=== PATIENT | female | born 1945 | race Caucasian/White ===

== ENCOUNTER 2020-06-16 17:27 | Emergency (ER) | payer MEDICARE, BC ==
[2020-06-16] MEDS ORDERED: HYDROmorphone 0.5 MG/0.5 ML Syringe IVPUSH ONE ×2 (17:42→19:45)
--- NOTE | 2020-06-16 18:11 | EDM.PDOC ---
<Johanny Hardy - Last Filed: 06/16/20 18:05> ED HPI GENERAL MEDICAL PROBLEM - General Chief Complaint: Upper Extremity Injury/Pain Stated Complaint: LEFT ELBOW PAIN Time Seen by Provider: 06/16/20 18:06 Source of Information: Reports: Patient History Limitations: Reports: No Limitations - History of Present Illness INITIAL COMMENTS - FREE TEXT/NARRATIVE: pt fell in the garage this afternoon and landed on her left elebopw. She was seen at the clinic and was found to have a communited fracture of the left elebow. Roger Akbar was contacted and he requested a cat scan with 3D reconstruction . He also wished a posterior splint. Onset: Today, Sudden Duration: Hour(s): Location: Reports: Upper Extremity, Left Associated Symptoms: Reports: No Other Symptoms Left Elbow Pain Score (Numeric/FACES): 10 - Related Data Allergies Allergy/AdvReac Type Severity Reaction Status Date / Time clopidogrel Allergy Rash Verified 06/16/20 18:20 diclofenac Allergy Chest Verified 06/16/20 18:20 Tightness lisinopril Allergy Cannot Verified 06/16/20 18:20 Remember nitrofurantoin Allergy Cannot Verified 06/16/20 18:20 [From Macrobid] Remember pantoprazole Allergy Cannot Verified 06/16/20 18:20 Remember rabeprazole [From AcipHex] Allergy Cannot Verified 06/16/20 18:20 Remember simvastatin Allergy Muscle Verified 06/16/20 18:20 Aches Sulfa (Sulfonamide Allergy Hives Verified 06/16/20 18:20 Antibiotics) valsartan Allergy Cannot Verified 06/16/20 18:20 Remember Past Medical History HEENT History: Reports: Impaired Vision Cardiovascular History: Reports: CAD, High Cholesterol, Hypertension MACHINE [employer] History: Reports: Fibroids, Other (See Below) Other MACHINE [employer] History: fibroids removed. Musculoskeletal History: Reports: Arthritis - Past Surgical History Cardiovascular Surgical History: Reports: Coronary Artery Bypass, Coronary Artery Stent, Valve Replacement Musculoskeletal Surgical History: Reports: Arthroscopic Knee Social & Family History - Tobacco Use Tobacco Use Status *Q: Never Tobacco User - Caffeine Use Caffeine Use: Reports: Soda - Recreational Drug Use Recreational Drug Use: No Review of Systems - Review of Systems Review Of Systems: See Below Constitutional: Reports: No Symptoms Eyes: Reports: No Symptoms Ears: Reports: No Symptoms Nose: Reports: No Symptoms Mouth/Throat: Reports: No Symptoms Respiratory: Reports: No Symptoms Cardiovascular: Reports: No Symptoms Musculoskeletal: Reports: Other (pain in left elebow with a known fracture. ) ED EXAM, GENERAL - Physical Exam Exam: See Below Free Text/Narrative:: pt arrived with a communited fracture of the left elebow. She will be having a cat scan of the elebow. Exam Limited By: No Limitations General Appearance: Alert Extremities: Other (pt has a communited fracture of the left elebow. pt has normal sensation and noral pulses present. ) Neurological: Alert, Oriented, Normal Cognition Departure - Departure Disposition: Home, Self-Care 01 Clinical Impression: Fracture of humerus Qualifiers: Encounter type: initial encounter Humerus Location: supracondylar fracture without intercondylar fracture Fracture type: closed Fracture morphology: comminuted Fracture alignment: displaced Laterality: left Qualified Code(s): S42.422A - Displaced comminuted supracondylar fracture without intercondylar fracture of left humerus, initial encounter for closed fracture - Discharge Information Instructions: Humerus Fracture Treated With Immobilization Referrals: Derrick Tripp MD [Primary Care Provider] - Forms: ED Department Discharge Additional Instructions: Keep injured arm in splint and arm sling. Apply ice to the elbow area 20 minutes off and on. Avoid vigorous activity this weekend to reduce swelling risk. Contact the [facility] appointment line on June 19, to arrange orthopedic consultation for the injury. If feeling worse through the weekend in any way, return to this emergency department. You may use the tramadol prescribed 1 tablet every 4-6 hours as needed for pain. Sepsis Event Note (ED) - Evaluation Sepsis Screening Result: No Definite Risk <Connor Rodriguez Román - Last Filed: 06/16/20 20:16> ED TRAUMA EXTREMITY PROCEDURES - Splinting Left Upper Extremity Pre-Procedure NV Status: Normal Post-Procedure NV Status: Normal Splint Material: Fiberglass Splint Design: Posterior Applied & Form Fitted By: Provider Provider Post-Splint Application NV Check: NV Status Normal Complications: No Course - Vital Signs Last Recorded V/S: Last Vital Signs Temp 36.5 C 06/16/20 17:51 Pulse 70 06/16/20 17:51 Resp 16 06/16/20 17:51 BP 191/98 H 06/16/20 17:51 Pulse Ox 97 06/16/20 17:51 - Orders/Labs/Meds Orders: Active Orders 24 hr Category Date Time Status Elbow wo Cont Lt [CT] Stat Exams 06/16/20 17:58 Ordered Meds: Medications Discontinued Medications Generic Name Dose Route Start Last Admin Trade Name Haleigh PRN Reason Stop Dose Admin Hydromorphone HCl 0.5 mg 06/16/20 17:42 06/16/20 17:59 Dilaudid IVPUSH 06/16/20 17:43 0.5 mg ONETIME ONE Administration Hydromorphone HCl 0.5 mg 06/16/20 19:45 06/16/20 19:59 Dilaudid IVPUSH 06/16/20 19:46 0.5 mg ONETIME ONE Administration - Re-Assessments/Exams Free Text/Narrative Re-Assessment/Exam: 06/16/20 19:19 A posterior splint was placed personally by myself. The patient was somewhat more comfortable in the splint compared to the free arm. Orthopedics in [place] is not able to take care of this complex fracture and she will require treatment by surgeons in [place]. I reviewed her case with Dr. Brandt, the orthopedist on-call at [facility] in [place]. He does not fix this particular type of complex fracture but others in the group do. This does not require immediate surgical repair. She will be kept in a posterior splint and arm sling through the weekend. She should ice the affected area to the extent that she can through all of her splint wrappings. [facility] prescription was entered for tramadol 50 mg, 15 tablets to be used as directed. If feeling worse in any way through the weekend she should return here. She was discharged in stable condition. 06/16/20 19:38 Departure - Departure Time of Disposition: 19:41 Sepsis Event Note (ED) - Focused Exam Vital Signs: Vital Signs Temp Pulse Resp BP Pulse Ox 06/16/20 17:51 36.5 C 70 16 191/98 H 97 06/16/20 17:47 36.5 C 70 16 191/98 H 97
--- NOTE | 2020-06-19 13:52 | CRLCT ---
HISTORY: Left elbow pain, fracture. TECHNIQUE: Noncontrast CT of the left elbow. COMPARISON: No prior. FINDINGS: There is an acute comminuted fracture of the distal humerus disrupting the capitellum and trochlea. There is approximately 10 mm of displacement at the capitellar articular surface as seen on sagittal image #61 for example. The radial head is slightly impacted into the capitellar fracture. Approximately 10 mm of displacement at the anterior aspect of the trochlear articular surface with proximal displacement of a fragment containing a portion of the articular surface, also well seen on the sagittal images. Ulnar - trochlear malalignment is present. There is no acute proximal radial or proximal ulnar fracture. A lipohemarthrosis is noted. There are mild degenerative changes of the elbow joint space. IMPRESSION: 1. Acute comminuted displaced fracture of the distal humerus with disruption of the capitellar and trochlear articular surfaces and on the order of 10 mm displacement at the distal articular surface. Radial head is slightly impacted into the capitellar fracture. There is ulnar - trochlear malalignment. 2. Lipohemarthrosis. Please note that all CT scans at this facility use dose modulation, iterative reconstruction, and/or weight-based dosing when appropriate to reduce radiation dose to as low as reasonably achievable. Dictated by Jeff Campbell MD @ Jun 18 2020 9:51AM Signed by: Jeff Campbell MD @06/18/2020 9:59:41 AM (Electronic Signature) MTDD
== END 2020-06-16 20:10 | disposition home or self-care (01) ==
LOC: JP.ED 17:27
DX: S42.422A Displaced comminuted supracondylar fracture without intercondylar fracture of left humerus, initial encounter for closed fracture (principal); I25.10 Atherosclerotic heart disease of native coronary artery without angina pectoris; E78.00 Pure hypercholesterolemia, unspecified; I10 Essential (primary) hypertension; M19.90 Unspecified osteoarthritis, unspecified site; Z88.8 Allergy status to other drugs, medicaments and biological substances; Z88.1 Allergy status to other antibiotic agents; Z88.2 Allergy status to sulfonamides; W18.30XA Fall on same level, unspecified, initial encounter; Y92.59 Other trade areas as the place of occurrence of the external cause
CPT/HCPCS: 29105; 73200; 96374; 96376; 99283; J1170